=== PATIENT | female | born 1950 | race Caucasian/White ===

== ENCOUNTER 2018-11-07 08:34 | Day surgery (SDC) | payer MEDICARE ==
[~2018-11-07] VITALS: Ht 157.5 cm; Wt 82.0 kg
[~2018-11-07 08:34] MED LIST: ALBU3IS; ALBU90OI INH; AMLO10 PO; ATOR10 PO; ESCI20 PO; LOSA25 PO; LOSA50 PO; Voltaren100 GM TOP
--- NOTE | 2018-11-07 09:15 | NUR ---
11/07/18 0915 Leny Wise BLOOD DRAWN FOR CHEM 8 AND DELIVERED STAT TO LAB AT 0900. PREOP TEACHING DONE, CALLL LIGHT IN REACH AND PTS HEIDY IS AT BED SIDE.
[2018-11-07 09:36] LABS: Anion Gap 8 mmol/L (6-16); Blood Urea Nitrogen 16 mg/dL (8-24); Bun/Creatinine Ratio 22.1 (12.0-20.0); CO2, Blood 28 mmol/L (21-32); Calcium, Blood 9.1 mg/dL (8.5-10.1); Chloride, Blood 104 mmol/L (98-108); Creatinine, Blood 0.73 mg/dL (0.40-1.00); Glomerular Filtration Rate >60 (60-); Glucose, Blood 100 mg/dL (70-99); Potassium, Blood 3.7 mmol/L (3.5-5.5); Sodium, Blood 140 mmol/L (136-145)
--- NOTE | 2018-11-07 12:26 | NUR ---
11/07/18 1226 Criselda Montes PT. VERBALIZES READY TO GO HOME. HOME INSTRUCTIONS GIVEN TO PT. & WITH UNDERSTANDING. TRAMADOL RX CALLED INTO THE [facility] FOR PT. ICE PACK SENT HOME WITH PT.
== END 2018-11-07 12:30 | disposition home or self-care (01) ==
LOC: ORSCSDS 08:34
PROVIDERS: Orthopaedic Surgery
PROC: 0JNK0ZZ Release Left Hand Subcutaneous Tissue and Fascia, Open Approach (ICD-10-PCS; principal; 2018-11-07 10:00)
PROC: 0LN80ZZ Release Left Hand Tendon, Open Approach (ICD-10-PCS; principal; 2018-11-07 10:00)
DX: M72.0 Palmar fascial fibromatosis [Dupuytren] (principal); I10 Essential (primary) hypertension; J45.909 Unspecified asthma, uncomplicated; E66.9 Obesity, unspecified; Z68.33 Body mass index [BMI] 33.0-33.9, adult; Z79.899 Other long term (current) drug therapy
CPT/HCPCS: 80048; J0690; J1100; J1885; J2250; J2405; J2704; J3010; J7120

== ENCOUNTER 2019-01-12 10:24 | Emergency (ER) | payer MEDICARE ==
[~2019-01-12] VITALS: Ht 157.5 cm; Wt 81.7 kg
[2019-01-12 10:47] LABS: BASOPHILS PERCENT AUTO 1 % (0-2); EOSINOPHILS ABSOLUTE AUTO 0.16 K/mm3 (0.00-0.68); EOSINOPHILS PERCENT AUTO 1 % (0-6); Hematocrit 43.2 % (33.0-51.0); Hemoglobin 14.6 g/dL (11.5-16.0); IMMATURE GRAN ABSOLUTE AUTO 0.07 K/mm3 (0.00-0.10); IMMATURE GRAN PERCENT AUTO 1 % (0-1); LYMPHOCYTES ABSOLUTE AUTO 3.64 K/mm3 (0.84-5.20); LYMPHOCYTES PERCENT AUTO 33 % (21-46); MONOCYTES ABSOLUTE AUTO 0.87 K/mm3 (0.16-1.47); MONOCYTES PERCENT AUTO 8 % (4-13); Mean Corpuscular HGB 30.5 pg (26.0-34.0); Mean Corpuscular HGB Conc 33.8 g/dL (31.5-36.5); Mean Corpuscular Volume 90 fL (80-100); Mean Platelet Volume 10.4 fL (9.1-12.4); NEUTROPHILS ABSOLUTE AUTO 6.27 K/mm3 (1.96-9.15); NEUTROPHILS PERCENT AUTO 57 % (41-73); Platelet Count 316 K/mm3 (150-400); RDW Coefficient Variation 12.7 % (11.7-14.2); RDW Standard Deviation 41.9 fL (35.1-46.3); Red Blood Cell Count 4.78 M/mm3 (3.80-5.20); White Blood Cell Count 11.11 K/mm3 (4.00-11.30)
[2019-01-12] MEDS ORDERED: TRAZ50 PO (10:49)
[2019-01-12] MEDS ORDERED: PROP10 PO (10:49)
[2019-01-12 10:57] LABS: Alanine Aminotransfer (ALT/SGP 30 U/L (12-78); Albumin/Globulin Ratio 0.9 (0.8-1.8); Alk Phos 116 U/L (50-136); Anion Gap 10 mmol/L (6-16); Aspartate Aminotrans (AST/SGOT 19 U/L (12-37); Bilirubin, Total 1.2 mg/dL (0.1-1.0); Blood Urea Nitrogen 20 mg/dL (8-24); Bun/Creatinine Ratio 27.2 (12.0-20.0); CO2, Blood 23 mmol/L (21-32); Calcium, Blood 9.9 mg/dL (8.5-10.1); Chloride, Blood 103 mmol/L (98-108); Creatinine, Blood 0.74 mg/dL (0.40-1.00); Globulin, Blood 4.3 g/dL (2.2-4.0); Glomerular Filtration Rate >60 (60-); Glucose, Blood 121 mg/dL (70-99); Potassium, Blood 3.7 mmol/L (3.5-5.5); Sodium, Blood 136 mmol/L (136-145); Total Protein, Blood 8.3 g/dL (6.4-8.2)
[2019-01-12] MEDS ORDERED: MOTION RELIEF25 MG PO (13:06)
== END 2019-01-12 13:20 | disposition home or self-care (01) ==
LOC: ER 10:24
PROVIDERS: Emergency Medicine
DX: H61.23 Impacted cerumen, bilateral (principal); I10 Essential (primary) hypertension; E78.5 Hyperlipidemia, unspecified; J45.909 Unspecified asthma, uncomplicated; Z87.891 Personal history of nicotine dependence; Z88.0 Allergy status to penicillin; Z88.8 Allergy status to other drugs, medicaments and biological substances; Z79.899 Other long term (current) drug therapy
CPT/HCPCS: 36415; 80053; 85025; 93005; 93010; 96374; 99284-25; J2405

== ENCOUNTER → 2019-03-19 | Outpatient (CLI) | payer MEDICARE ==
[~2019-03-19] MED LIST changes: +MOTION RELIEF25 MG PO; +PROP10 PO; +TRAZ50 PO
[2019-03-19 17:31] LABS: BASOPHILS PERCENT AUTO 1 % (0-2); EOSINOPHILS ABSOLUTE AUTO 0.22 K/mm3 (0.00-0.68); EOSINOPHILS PERCENT AUTO 2 % (0-6); Hematocrit 42.1 % (33.0-51.0); Hemoglobin 14.5 g/dL (11.5-16.0); IMMATURE GRAN ABSOLUTE AUTO 0.09 K/mm3 (0.00-0.10); IMMATURE GRAN PERCENT AUTO 1 % (0-1); LYMPHOCYTES ABSOLUTE AUTO 3.67 K/mm3 (0.84-5.20); LYMPHOCYTES PERCENT AUTO 31 % (21-46); MONOCYTES ABSOLUTE AUTO 0.88 K/mm3 (0.16-1.47); MONOCYTES PERCENT AUTO 7 % (4-13); Mean Corpuscular HGB 31.3 pg (26.0-34.0); Mean Corpuscular HGB Conc 34.4 g/dL (31.5-36.5); Mean Corpuscular Volume 91 fL (80-100); Mean Platelet Volume 10.5 fL (9.1-12.4); NEUTROPHILS ABSOLUTE AUTO 6.98 K/mm3 (1.96-9.15); NEUTROPHILS PERCENT AUTO 59 % (41-73); Platelet Count 277 K/mm3 (150-400); RDW Coefficient Variation 13.1 % (11.7-14.2); RDW Standard Deviation 43.4 fL (35.1-46.3); Red Blood Cell Count 4.64 M/mm3 (3.80-5.20); White Blood Cell Count 11.94 K/mm3 (4.00-11.30)
[2019-03-19 17:37] LABS: Bun/Creatinine Ratio 19.1 (12.0-20.0); Calcium, Blood 9.6 mg/dL (8.5-10.1); Creatinine, Blood 1.31 mg/dL (0.40-1.00); Potassium, Blood 3.4 mmol/L (3.5-5.5); Uric Acid, Blood 4.1 mg/dL (2.6-6.0)
== END | disposition home or self-care (01) ==
LOC: LAB SHORT 17:24 → LAB EV 17:24
PROVIDERS: Physician Assistant
DX: M25.571 Pain in right ankle and joints of right foot (principal)
CPT/HCPCS: 80048; 84550; 85025

== ENCOUNTER → 2019-04-23 | Outpatient (CLI) | payer MEDICARE | END | disposition home or self-care (01) | LOC: PLD 13:37 → LAB SHORT 13:37 | DX: L82.1 Other seborrheic keratosis (principal) | CPT/HCPCS: 88305 ==

== ENCOUNTER → 2019-09-22 | Outpatient (CLI) | payer MEDICARE ==
[2019-09-24 15:07] LABS: HPV 16 Negative (Negative); HPV 18 Negative (Negative); HPV OTHER HR TYPES Negative (Negative)
== END | disposition home or self-care (01) ==
LOC: LAB 07:55 → LAB SHORT 07:55
PROVIDERS: Obstetrics & Gynecology
DX: Z01.419 Encounter for gynecological examination (general) (routine) without abnormal findings (principal)
CPT/HCPCS: 87624; G0123

== ENCOUNTER 2019-10-17 18:27 | Emergency (ER) | payer MEDICARE ==
[~2019-10-17] VITALS: Ht 157.5 cm; Wt 86.2 kg
== END 2019-10-17 19:45 | disposition left against medical advice (07) ==
LOC: ER 18:27
DX: Z53.21 Procedure and treatment not carried out due to patient leaving prior to being seen by health care provider (principal)

== ENCOUNTER 2019-10-19 14:42 | Emergency (ER) | payer MEDICARE ==
[~2019-10-19] VITALS: Ht 157.5 cm; Wt 86.2 kg
[2019-10-19] MEDS ORDERED: HYDR1TAB94 PO (17:15)
[2019-10-19] MEDS ORDERED: CYCL10 PO (17:15)
== END 2019-10-19 17:30 | disposition home or self-care (01) ==
LOC: ER 14:42
DX: M62.838 Other muscle spasm (principal); M25.562 Pain in left knee; M25.552 Pain in left hip; Z88.0 Allergy status to penicillin; Z88.8 Allergy status to other drugs, medicaments and biological substances; Z79.899 Other long term (current) drug therapy; I10 Essential (primary) hypertension; E78.5 Hyperlipidemia, unspecified; J45.909 Unspecified asthma, uncomplicated; Z87.891 Personal history of nicotine dependence
CPT/HCPCS: 73502; 73562-LT; 99283-25; A9270-GY

== ENCOUNTER 2019-10-22 09:11 | Day surgery (SDC) | payer MEDICARE ==
[~2019-10-22] VITALS: Ht 157.5 cm; Wt 89.0 kg
[~2019-10-22 09:11] MED LIST changes: +CYCL10 PO; +HYDR1TAB94 PO
== END 2019-10-22 10:38 | disposition home or self-care (01) ==
LOC: ORSCSDS 09:11
PROVIDERS: Anesthesiology
PROC: 3E0R33Z Introduction of Anti-inflammatory into Spinal Canal, Percutaneous Approach (ICD-10-PCS; principal; 2019-10-22 10:30)
DX: M54.5 Low back pain (principal); M54.16 Radiculopathy, lumbar region; J45.909 Unspecified asthma, uncomplicated; Z87.891 Personal history of nicotine dependence; Z79.899 Other long term (current) drug therapy
CPT/HCPCS: J1040

== ENCOUNTER 2020-04-18 06:04 | Day surgery (SDC) | payer MEDICARE ==
[~2020-04-18] VITALS: Ht 154.9 cm; Wt 87.3 kg
[~2020-04-18 06:04] MED LIST changes: +ACET325 PO; +ALBU2.5V5 INH; +ATOR20 PO; +Clonazepam0.5 MG PO; +DOCU100 PO; +IBUP800 PO; +ONDA4 PO; +Percocet 5-3251 EACH PO; +TIZANIDINE HCL2 MG PO; +TRAM50 PO
--- NOTE | 2020-04-18 08:12 | NUR ---
04/18/20 0812 Graham Estrada RN ATTEMPTED IV IN LEFT FOOT, UNSUCCESSFUL, VEIN BLEW. DR NARVAEZ ATTEMPTED IV IN RIGHT FOOT, UNSUCCESSFUL, VEIN BLEW.
--- NOTE | 2020-04-18 08:52 | NUR ---
04/18/20 0852 NADIA STAHL PT TO RECLINER - VSS ON ROOM AIR. PT DENIES PAIN AND NAUSEA. IV IN RIGHT FOOT REMOVED. (NEW IV WAS PLACED PRIOR TO PT EXITING OR) PT TOLERATING PO INTAKE OF COFFEE AND COOKIES. DRESSING C/D/I, ICE PACK TO ELBOW. PT OFFERED PO MEDICATION PRIOR TO DISCHARGE BUT DENIES NEED. ENCOURAGED PT TO FILL PRESCRIPTION EDUCATED IN DC TEACHING.
== END 2020-04-18 08:52 | disposition home or self-care (01) ==
LOC: ORSCSDS 06:04
PROVIDERS: Orthopaedic Surgery
PROC: 01N50ZZ Release Median Nerve, Open Approach (ICD-10-PCS; principal; 2020-04-18 07:30)
DX: G56.01 Carpal tunnel syndrome, right upper limb (principal); E78.5 Hyperlipidemia, unspecified; J45.909 Unspecified asthma, uncomplicated; Z79.899 Other long term (current) drug therapy; Z87.891 Personal history of nicotine dependence
CPT/HCPCS: J1100; J1885; J2250; J2405; J2704; J3010

== ENCOUNTER 2020-06-27 10:26 | Day surgery (SDC) | payer MEDICARE ==
[~2020-06-27] VITALS: Ht 154.9 cm; Wt 89.1 kg
[2020-06-27] MEDS ORDERED: MEGESTROL ACETA PO (11:20)
--- NOTE | 2020-06-27 12:17 | NUR ---
06/27/20 1217 Nancy Harrison (Brittney PT UPDATED ON DELAY. PT RESTING COMFORTABLY IN BED, CALL LIGHT WITHIN REACH. DENIES NEEDS AT THIS TIME.
--- NOTE | 2020-06-27 15:24 | NUR ---
06/27/20 1524 NADIA STAHL PT TO STEP DOWN VIA BED, SBA TO RECLINER. IV PATENT AND PT W/REACTIVE AIRWAY AND COUGHING, S/P DUONEB IN PACU. LUNGS CLEAR POST DUONEB. PT ON ROOM AIR IN STEPDOWN, WITH SATS 93- 94%. PT TOLERATING SMALL SIPS OF WATER. DENIES NAUSEA AT THIS TIME, REPORTS PAIN 6/10 AND BEING MEDICATED WITH IV FENTANYL NEEDED FOR PAIN
== END 2020-06-27 16:05 | disposition home or self-care (01) ==
LOC: ORSCSDS 10:26
PROVIDERS: Orthopaedic Surgery
PROC: 0RQT0ZZ Repair Left Carpometacarpal Joint, Open Approach (ICD-10-PCS; principal; 2020-06-27 12:00)
PROC: 0LX80ZZ Transfer Left Hand Tendon, Open Approach (ICD-10-PCS; principal; 2020-06-27 12:00)
DX: M18.12 Unilateral primary osteoarthritis of first carpometacarpal joint, left hand (principal); I10 Essential (primary) hypertension; J45.909 Unspecified asthma, uncomplicated; E66.01 Morbid (severe) obesity due to excess calories; Z68.37 Body mass index [BMI] 37.0-37.9, adult; Z79.899 Other long term (current) drug therapy
CPT/HCPCS: A9270; J1100; J2250; J2405; J2704; J2710; J3010; J3370; J7120

== ENCOUNTER 2020-07-11 14:32 | Emergency (ER) | payer MEDICARE ==
[~2020-07-11] VITALS: Ht 154.9 cm; Wt 86.2 kg
[~2020-07-11 14:32] MED LIST changes: +MEGESTROL ACETA PO
[2020-07-11] MEDS ORDERED: HYDR1TAB94 PO (16:54)
== END 2020-07-11 17:12 | disposition home or self-care (01) ==
LOC: ER 14:32
DX: S01.21XA Laceration without foreign body of nose, initial encounter (principal); I10 Essential (primary) hypertension; E78.5 Hyperlipidemia, unspecified; Z88.0 Allergy status to penicillin; Z79.899 Other long term (current) drug therapy; W18.30XS Fall on same level, unspecified, sequela
CPT/HCPCS: 12011; 70450; 99283-25; A9270

== ENCOUNTER 2020-08-29 17:36 | Emergency (ER) | payer MEDICARE ==
[~2020-08-29] VITALS: Ht 157.5 cm; Wt 85.7 kg
== END 2020-08-29 19:22 | disposition home or self-care (01) ==
LOC: ER 17:36
DX: M25.561 Pain in right knee (principal)
CPT/HCPCS: 93971; 99283-25; A9270-GY

== ENCOUNTER 2021-02-13 08:44 | Day surgery (SDC) | payer MEDICARE ==
[~2021-02-13] VITALS: Ht 154.9 cm; Wt 84.5 kg
--- NOTE | 2021-02-13 09:29 | NUR ---
02/13/21928 Mai Meyers VANCOMYCIN 1GM STARTED AT 09
--- NOTE | 2021-02-13 10:22 | NUR ---
02/13/21 1022 Pari Ayala 1 MG EPI ADDED TO THE FIRST BAG OF LR PER ORDER FOR IRRIGATION.
== END 2021-02-13 11:27 | disposition home or self-care (01) ==
LOC: ORSCSDS 08:44
PROVIDERS: Orthopaedic Surgery
PROC: 0SQC4ZZ Repair Right Knee Joint, Percutaneous Endoscopic Approach (ICD-10-PCS; principal; 2021-02-13 10:00)
PROC: 0SBC4ZZ Excision of Right Knee Joint, Percutaneous Endoscopic Approach (ICD-10-PCS; principal; 2021-02-13 10:00)
DX: S83.241A Other tear of medial meniscus, current injury, right knee, initial encounter (principal); M17.11 Unilateral primary osteoarthritis, right knee; I10 Essential (primary) hypertension; Z87.891 Personal history of nicotine dependence; J45.909 Unspecified asthma, uncomplicated; E66.9 Obesity, unspecified; Z68.35 Body mass index [BMI] 35.0-35.9, adult; Z79.899 Other long term (current) drug therapy
CPT/HCPCS: J0171; J1100; J1885; J2250; J2405; J2704; J3010; J3370; J7120

== ENCOUNTER → 2021-08-07 | Outpatient (CLI) | payer MEDICARE ==
[2021-08-07 12:37] LABS: BASOPHILS ABSOLUTE AUTO 0.08 K/mm3 (0.00-0.23); BASOPHILS PERCENT AUTO 1 % (0-2); EOSINOPHILS ABSOLUTE AUTO 0.17 K/mm3 (0.00-0.68); EOSINOPHILS PERCENT AUTO 2 % (0-6); Hematocrit 45.6 % (33.0-51.0); Hemoglobin 15.3 g/dL (11.5-16.0); IMMATURE GRAN ABSOLUTE AUTO 0.06 K/mm3 (0.00-0.10); IMMATURE GRAN PERCENT AUTO 1 % (0-1); LYMPHOCYTES PERCENT AUTO 30 % (21-46); MONOCYTES ABSOLUTE AUTO 0.78 K/mm3 (0.16-1.47); MONOCYTES PERCENT AUTO 8 % (4-13); Mean Corpuscular HGB 29.8 pg (26.0-34.0); Mean Corpuscular HGB Conc 33.6 g/dL (31.5-36.5); Mean Corpuscular Volume 89 fL (80-100); Mean Platelet Volume 10.6 fL (9.1-12.4); NEUTROPHILS ABSOLUTE AUTO 5.81 K/mm3 (1.96-9.15); NEUTROPHILS PERCENT AUTO 59 % (41-73); Platelet Count 315 K/mm3 (150-400); RDW Coefficient Variation 12.7 % (11.7-14.2); RDW Standard Deviation 41.6 fL (35.1-46.3); Red Blood Cell Count 5.14 M/mm3 (3.80-5.20)
== END | disposition home or self-care (01) ==
LOC: LAB SHORT 11:13
PROVIDERS: Nurse Practitioner Family
DX: R06.00 Dyspnea, unspecified (principal); R53.83 Other fatigue
CPT/HCPCS: 36415; 85025

== ENCOUNTER 2021-09-20 06:01 | Day surgery (SDC) | payer MEDICARE ==
[~2021-09-20] VITALS: Ht 157.5 cm; Wt 91.0 kg
--- NOTE | 2021-09-20 07:14 | NUR ---
Ambulatory in Day Surgery. History, Chart, Medications and Allergies reviewed before start of procedure. Patient confirms NPO status and agrees with scheduled surgery. UP TO BATHROOM AT THIS TIME.
--- NOTE | 2021-09-20 08:20 | NUR ---
09/20/21 0820 Lou Sales PATIENT ALSO RECEIVED 1GM OF VANCO AT 0700 IN PREOP PRIOR TO ARRIVING TO THE OR.
--- NOTE | 2021-09-20 19:10 | NUR ---
SHIFT SUMMARY HAS DONE VERY WELL POST OP. TOLERATING DIET, AMBULATING WELL, UP TO CHAIR FOR MEALS & AMBULATES TO BATHROOM FREQ. PAIN WELL CONTROLLED. INESSA WRAP TO RLE WNL.
[2021-09-21 04:48] LABS: BASOPHILS ABSOLUTE AUTO 0.04 K/mm3 (0.00-0.23); BASOPHILS PERCENT AUTO 0 % (0-2); EOSINOPHILS ABSOLUTE AUTO 0.01 K/mm3 (0.00-0.68); EOSINOPHILS PERCENT AUTO 0 % (0-6); Hematocrit 35.3 % (33.0-51.0); Hemoglobin 11.7 g/dL (11.5-16.0); IMMATURE GRAN ABSOLUTE AUTO 0.13 K/mm3 (0.00-0.10); IMMATURE GRAN PERCENT AUTO 1 % (0-1); LYMPHOCYTES ABSOLUTE AUTO 1.63 K/mm3 (0.84-5.20); LYMPHOCYTES PERCENT AUTO 11 % (21-46); MONOCYTES ABSOLUTE AUTO 1.41 K/mm3 (0.16-1.47); MONOCYTES PERCENT AUTO 9 % (4-13); Mean Corpuscular HGB 30.1 pg (26.0-34.0); Mean Corpuscular HGB Conc 33.1 g/dL (31.5-36.5); Mean Corpuscular Volume 91 fL (80-100); Mean Platelet Volume 10.6 fL (9.1-12.4); NEUTROPHILS ABSOLUTE AUTO 11.71 K/mm3 (1.96-9.15); NEUTROPHILS PERCENT AUTO 78 % (41-73); Platelet Count 273 K/mm3 (150-400); RDW Coefficient Variation 12.7 % (11.7-14.2); RDW Standard Deviation 42.1 fL (35.1-46.3); Red Blood Cell Count 3.89 M/mm3 (3.80-5.20); White Blood Cell Count 14.93 K/mm3 (4.00-11.30)
[2021-09-21 04:57] LABS: Bun/Creatinine Ratio 15.7 (12.0-20.0); Calcium, Blood 9.4 mg/dL (8.5-10.1); Creatinine, Blood 0.95 mg/dL (0.40-1.00); Magnesium, Blood 2.6 mg/dL (1.6-2.4); Potassium, Blood 4.5 mmol/L (3.5-5.5)
--- NOTE | 2021-09-21 06:13 | NUR ---
PT IS A&OX4, SBA TO BR W/ FWW AND IS ABLE TO MAKE NEEDS KNOWN. POST OP DAY 1 FOR R TKA, CSM INTACT, PAIN CONTROLLED WITH SCHEDULED TORADOL AND PRN SHAYLA 5MG. PT RESTS BETWEEN CARES, SLEEPS 6+ HOURS THIS SHIFT. PT TOLERATING PO FLUIDS AND SOLIDS. TAKES MEDS WHOLE WITH THINS. PT CALLS APPROPRIATELY. WILL CONTINUE TO MONITOR AND GIVE HANDOFF REPORT TO ONCOMING NURSE.
[2021-09-21] MEDS ORDERED: OXAYDO5 M1 PO (09:07)
[2021-09-21] MEDS ORDERED: ASPI81CH PO (09:07)
[2021-09-21] MEDS ORDERED: PROM25 PO (09:08)
[2021-09-21] MEDS ORDERED: SULTRIDS PO (09:09)
--- NOTE | 2021-09-21 10:16 | NUR ---
Pt is sitting up in a recliner, and welcomes my visit. Pt. is awaiting eminent discharge after knee replacement. Pt. is pleasant. Establish rapport. Pt. displays evidence of confidence in her care. Prayed with Pt. Pt. verbalized gratitude for the spiritual care visit.
--- NOTE | 2021-09-21 11:30 | NUR ---
DISCHARGE SUMMARY PT TEACHING PROVIDED W/ PT ACKNOWLEDGING UNDERSTANDING AND SIGNING WHERE APPROPRIATE. PT'S IV REMOVED W/ CATHETER INTACT AND NO REDNESS, PAIN, OR SWELLING NOTED AT THE INSERTION SITE. PT DRESSED AND BELONGINGS GATHERED. PT ASSISTED TO WHEELCHAIR AND ESCORTED TO VEHICLE BY STAFF. PT ASSISTED FROM WHEELCHAIR TO VEHICLE W/O INCIDENT AND DEPARTED POV.
== END 2021-09-21 11:27 | disposition home or self-care (01) ==
LOC: ORSCMMR 06:01 → ORD 10:45 → SURS 11:11 → ORSCMMR 09-21 11:27
PROVIDERS: Orthopaedic Surgery
PROC: 0SRC0J9 Replacement of Right Knee Joint with Synthetic Substitute, Cemented, Open Approach (ICD-10-PCS; principal; 2021-09-20 07:30)
PROC: 8E0YXBZ Computer Assisted Procedure of Lower Extremity (ICD-10-PCS; principal; 2021-09-20 07:30)
DX: M17.11 Unilateral primary osteoarthritis, right knee (principal); I10 Essential (primary) hypertension; J45.909 Unspecified asthma, uncomplicated; E78.5 Hyperlipidemia, unspecified; F41.9 Anxiety disorder, unspecified; K21.9 Gastro-esophageal reflux disease without esophagitis; E66.9 Obesity, unspecified; Z68.36 Body mass index [BMI] 36.0-36.9, adult; Z79.899 Other long term (current) drug therapy; Z87.891 Personal history of nicotine dependence
CPT/HCPCS: 36415; 73560-RT; 80048; 83735; 85025; 97110; 97116; 97162; A9270; C1713; C1776; J0171; J0690; J0735; J1100; J1885; J2250; J2370; J2405; J2704; J2795; J3010; J3370; J7050; J7060; J7120